=== PATIENT | female | born 1985 | race American Indian/Alaskan Native ===

== ENCOUNTER 2022-03-16 22:43 | Emergency (ER) | payer SELFPAY ==
[2022-03-17 01:05] VITALS: BP 137/87
== END 2022-03-17 04:05 | disposition left against medical advice (07) ==
LOC: ED 22:43
DX: R10.10 Upper abdominal pain, unspecified (principal); Z53.21 Procedure and treatment not carried out due to patient leaving prior to being seen by health care provider